=== PATIENT | female | born 1980 | race Caucasian/White ===

== ENCOUNTER 2017-11-27 22:25 | Emergency (ER) | payer OTHER ==
[2017-11-27 22:25] VITALS: BP 148/72
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
== END 2017-11-28 00:48 | disposition home or self-care (01) ==
LOC: ER 22:25
DX: Z77.21 Contact with and (suspected) exposure to potentially hazardous body fluids (principal)
CPT/HCPCS: 86703; 99283